=== PATIENT | female | born 1965 | race Caucasian/White ===

== ENCOUNTER 2017-03-30 18:18 | Inpatient (IN) | payer BC ==
[~2017-03-30] VITALS: Ht 165.1 cm; Wt 62.9 kg
[~2017-03-30 18:18] MED LIST: ASPI325; B Complete1 EACH; CHOL10002 PO; DIGESTIVE ENZY220 MG PO; DIPH12.5EL; FOLI400; GABA300; GINSENG; Ginkgo Biloba40 M1; MELATONIN10 M2; MSM1000 MG; NORT10; POTCHL10ER PO; VIRT-VITE PLUS T5 MG; Vitamin C1000 M1; ZINC15; [UNRECOGNIZED DRUG - OTHER]
[2017-03-30 19:21] LABS: Base Excess Venous -12.5 mmol/L; Bicarbonate Venous 15.4 mmol/L (24.0-30.0); PCO2 Venous 36.7 mmHg (38-42); PO2 Venous 70.1 mmHg (38-42); pH Blood Venous 7.22 (7.34-7.37)
[2017-03-30 19:49] LABS: Thyroid Stimulating Hormone 1.11 uIU/mL (0.360-4.800)
[2017-03-30 20:07] LABS: Magnesium, Blood 2.7 mg/dL (1.6-2.4); Phosphorus, Blood 13.1 mg/dL (2.5-4.9)
[2017-03-30 22:10] LABS: Source, Urine Clean Catch
[2017-03-30 22:21] LABS: Appearance, Urine Bloody (Clear); Bilirubin, Urine Neg (Neg); Blood, Urine 5+ (Neg); Color, Urine Red (P-Yellow); Glucose Qualitative, Urine Neg (Neg); Ketones, Urine Neg (Neg); Leukocyte Esterase, Urine 2+ (Neg); Nitrite, Urine Neg (Neg); Protein, Urine 4+ (Neg); Specific Gravity, Urine 1.015 (1.003-1.022); Urobilinogen, Urine NORM (Normal)
[2017-03-30 22:34] LABS: Potassium, Urine, Random 9.7 mmol/L (12.0-75.0)
[2017-03-30 22:35] LABS: Bacteria Many /hpf; Renal Epithelial Many /hpf (0-Rare); Squamous Epithelial Cells Few /hpf (Few); Transitional Epithelial Cells Few /hpf (0-Rare); White Blood Cells, Urine TNTC /hpf (0-5)
[2017-03-30 22:49] LABS: PCO2 Arterial 24.5 mmHg (35-45); PO2 Arterial 99.3 mmHg (80-100); pH Blood Arterial 7.31 (7.35-7.45)
[2017-03-30 23:10] LABS: U Amphetamine Screen Not Detected; U Barbituate Screen Not Detected; U Benzodiazapine Screen Not Detected; U Buprenorphine Screen Not Detected; U Cannabinoids Screen Not Detected; U Cocaine Screen Not Detected; U Methadone Screen Not Detected; U Methamphetamine Screen Not Detected; U Opiates Screen Not Detected; U Oxycodone Screen Not Detected; U Phencyclidine Screen Not Detected; U Propoxyphene Screen Not Detected
[2017-03-31 00:23] LABS: Albumin, Blood 3.2 g/dL (3.4-5.0); Anion Gap 22 mmol/L (6-16); Blood Urea Nitrogen 129 mg/dL (8-24); Bun/Creatinine Ratio 16.1 (12.0-20.0); CO2, Blood 15 mmol/L (21-32); Calcium, Blood 9.4 mg/dL (8.5-10.1); Chloride, Blood 74 mmol/L (98-108); Glomerular Filtration Rate 6 (60-); Glucose, Blood 95 mg/dL (70-99); Potassium, Blood 3.4 mmol/L (3.5-5.5); Sodium, Blood 111 mmol/L (136-145)
[2017-03-31 00:45] LABS: Phosphorus, Blood 12.9 mg/dL (2.5-4.9)
[2017-03-31 03:58] LABS: BASOPHILS ABSOLUTE AUTO 0.02 K/mm3 (0.00-0.23); BASOPHILS PERCENT AUTO 0 % (0-2); EOSINOPHILS PERCENT AUTO 0 % (0-6); Hemoglobin 14.4 g/dL (11.5-16.0); IMMATURE GRAN ABSOLUTE AUTO 0.47 K/mm3 (0.00-0.10); IMMATURE GRAN PERCENT AUTO 4 % (0-1); LYMPHOCYTES ABSOLUTE AUTO 2.14 K/mm3 (0.84-5.20); LYMPHOCYTES PERCENT AUTO 16 % (21-46); MONOCYTES ABSOLUTE AUTO 0.54 K/mm3 (0.16-1.47); MONOCYTES PERCENT AUTO 4 % (4-13); Mean Corpuscular HGB 31.6 pg (26.0-34.0); NEUTROPHILS ABSOLUTE AUTO 10.24 K/mm3 (1.96-9.15); NEUTROPHILS PERCENT AUTO 76 % (41-73); Platelet Count 436 K/mm3 (150-400); RDW Coefficient Variation 12.5 % (11.7-14.2); RDW Standard Deviation 37.7 fL (35.1-46.3); Red Blood Cell Count 4.55 M/mm3 (3.80-5.20); White Blood Cell Count 13.41 K/mm3 (4.00-11.30)
[2017-03-31 04:06] LABS: Magnesium, Blood 2.7 mg/dL (1.6-2.4)
[2017-03-31 04:28] LABS: Albumin, Blood 3.1 g/dL (3.4-5.0); Anion Gap 20 mmol/L (6-16); Blood Urea Nitrogen 125 mg/dL (8-24); Bun/Creatinine Ratio 18.1 (12.0-20.0); CO2, Blood 17 mmol/L (21-32); Calcium, Blood 9.1 mg/dL (8.5-10.1); Chloride, Blood 76 mmol/L (98-108); Creatinine, Blood 6.92 mg/dL (0.40-1.00); Glomerular Filtration Rate 7 (60-); Glucose, Blood 123 mg/dL (70-99); Phosphorus, Blood 10.6 mg/dL (2.5-4.9); Potassium, Blood 3.2 mmol/L (3.5-5.5); Sodium, Blood 113 mmol/L (136-145)
[2017-03-31 05:12] LABS: Mean Corpuscular Volume 95 fL (80-100)
[2017-03-31 07:23] LABS: Mean Corpuscular HGB Conc 33.5 g/dL (31.5-36.5)
[2017-03-31 08:16] LABS: International Normalized Ratio 0.96
[2017-03-31] MEDS ORDERED: Questran4 GM PO (08:52)
[2017-03-31] MEDS ORDERED: GABA300 PO (08:53)
[2017-03-31] MEDS ORDERED: NORT25 PO (08:53)
[2017-03-31 09:00] LABS: Potassium, Blood 2.6 mmol/L (3.5-5.5)
[2017-03-31 13:35] LABS: CO2, Blood 28 mmol/L (21-32); Sodium, Blood 118 mmol/L (136-145)
[2017-03-31 21:16] LABS: Potassium, Blood 3.1 mmol/L (3.5-5.5)
[2017-03-31 22:53] LABS: Adenovirus F 40/41 Not Detected (NOT DETECT); Astrovirus Not Detected (NOT DETECT); Campylobacter Sp Not Detected (NOT DETECT); Cryptosporidium Not Detected (NOT DETECT); Cyclospora Cayetanensis Not Detected (NOT DETECT); E. Coli O157 Not Detected (NOT DETECT); Entamoeba Histolytica Not Detected (NOT DETECT); Enteroaggregative E. coli-EAEC Not Detected (NOT DETECT); Enteropathogenic E. coli-EPEC Not Detected (NOT DETECT); Enterotoxigenic E. coli-ETEC Not Detected (NOT DETECT); Giardia Lamblia Not Detected (NOT DETECT); Norovirus GI/GII Not Detected (NOT DETECT); Plesiomonas Shigelloides Not Detected (NOT DETECT); Rotavirus A Not Detected (NOT DETECT); Salmonella Sp Not Detected (NOT DETECT); Sapovirus Not Detected (NOT DETECT); Shiga Toxin-prod E. coli-STEC Not Detected (NOT DETECT); Shigella/Enteroin E. coli-EIEC Not Detected (NOT DETECT); Vibrio Cholerae Not Detected (NOT DETECT); Vibrio Sp Not Detected (NOT DETECT); Yersinia Enterocolitica Not Detected (NOT DETECT)
[2017-04-01 04:27] LABS: BASOPHILS ABSOLUTE AUTO 0.01 K/mm3 (0.00-0.23); BASOPHILS PERCENT AUTO 0 % (0-2); EOSINOPHILS ABSOLUTE AUTO 0.01 K/mm3 (0.00-0.68); EOSINOPHILS PERCENT AUTO 0 % (0-6); Hematocrit 29.3 % (33.0-51.0); Hemoglobin 10.7 g/dL (11.5-16.0); IMMATURE GRAN ABSOLUTE AUTO 0.13 K/mm3 (0.00-0.10); IMMATURE GRAN PERCENT AUTO 2 % (0-1); LYMPHOCYTES ABSOLUTE AUTO 1.13 K/mm3 (0.84-5.20); LYMPHOCYTES PERCENT AUTO 16 % (21-46); MONOCYTES ABSOLUTE AUTO 0.55 K/mm3 (0.16-1.47); MONOCYTES PERCENT AUTO 8 % (4-13); Mean Corpuscular HGB 31.1 pg (26.0-34.0); Mean Corpuscular HGB Conc 36.5 g/dL (31.5-36.5); NEUTROPHILS ABSOLUTE AUTO 5.18 K/mm3 (1.96-9.15); NEUTROPHILS PERCENT AUTO 74 % (41-73); Platelet Count 312 K/mm3 (150-400); RDW Coefficient Variation 12.6 % (11.7-14.2); RDW Standard Deviation 39.3 fL (35.1-46.3); Red Blood Cell Count 3.44 M/mm3 (3.80-5.20); White Blood Cell Count 7.01 K/mm3 (4.00-11.30)
[2017-04-01 04:30] LABS: Mean Corpuscular Volume 85 fL (80-100)
[2017-04-01 04:53] LABS: CPK Creatine Kinase 39 U/L (26-193); Magnesium, Blood 2.1 mg/dL (1.6-2.4); Uric Acid, Blood 5.5 mg/dL (2.6-6.0)
[2017-04-01 05:06] LABS: Alanine Aminotransfer (ALT/SGP 9 U/L (12-78); Albumin, Blood 2.3 g/dL (3.4-5.0); Albumin/Globulin Ratio 0.6 (0.8-1.8); Alk Phos 90 U/L (50-136); Anion Gap 6 mmol/L (6-16); Aspartate Aminotrans (AST/SGOT 12 U/L (12-37); Bilirubin, Total 0.4 mg/dL (0.1-1.0); Blood Urea Nitrogen 17 mg/dL (8-24); Bun/Creatinine Ratio 30.1 (12.0-20.0); CO2, Blood 29 mmol/L (21-32); Chloride, Blood 96 mmol/L (98-108); Creatinine, Blood 0.56 mg/dL (0.40-1.00); Globulin, Blood 3.6 g/dL (2.2-4.0); Glomerular Filtration Rate >60 (60-); Glucose, Blood 90 mg/dL (70-99); Potassium, Blood 3.5 mmol/L (3.5-5.5); Sodium, Blood 131 mmol/L (136-145); Total Protein, Blood 5.9 g/dL (6.4-8.2)
[2017-04-01 05:26] LABS: Calcium, Blood 7.7 mg/dL (8.5-10.1); Phosphorus, Blood 0.5 mg/dL (2.5-4.9)
[2017-04-01 06:39] LABS: Creatinine, Blood 0.51 mg/dL (0.40-1.00); Phosphorus, Blood 0.5 mg/dL (2.5-4.9)
[2017-04-01 15:44] LABS: Albumin, Blood 2.3 g/dL (3.4-5.0); Anion Gap 7 mmol/L (6-16); Blood Urea Nitrogen 6 mg/dL (8-24); Bun/Creatinine Ratio 13.9 (12.0-20.0); CO2, Blood 28 mmol/L (21-32); Chloride, Blood 96 mmol/L (98-108); Creatinine, Blood 0.43 mg/dL (0.40-1.00); Glomerular Filtration Rate >60 (60-); Glucose, Blood 78 mg/dL (70-99); Potassium, Blood 3.3 mmol/L (3.5-5.5); Sodium, Blood 131 mmol/L (136-145)
[2017-04-01 15:54] LABS: Phosphorus, Blood 0.5 mg/dL (2.5-4.9)
[2017-04-02 00:41] LABS: Albumin, Blood 2.2 g/dL (3.4-5.0); Anion Gap 7 mmol/L (6-16); Blood Urea Nitrogen 2 mg/dL (8-24); Bun/Creatinine Ratio 4.8 (12.0-20.0); CO2, Blood 30 mmol/L (21-32); Calcium, Blood 7.5 mg/dL (8.5-10.1); Chloride, Blood 96 mmol/L (98-108); Creatinine, Blood 0.42 mg/dL (0.40-1.00); Glomerular Filtration Rate >60 (60-); Glucose, Blood 87 mg/dL (70-99); Magnesium, Blood 1.8 mg/dL (1.6-2.4); Phosphorus, Blood 1.8 mg/dL (2.5-4.9); Sodium, Blood 133 mmol/L (136-145)
[2017-04-02 09:30] LABS: Hematocrit 29.5 % (33.0-51.0); Hemoglobin 10.1 g/dL (11.5-16.0)
[2017-04-02 10:22] LABS: Magnesium, Blood 1.8 mg/dL (1.6-2.4)
[2017-04-02 10:45] LABS: Albumin, Blood 2.2 g/dL (3.4-5.0); Anion Gap 9 mmol/L (6-16); Blood Urea Nitrogen <1 mg/dL (8-24); Bun/Creatinine Ratio Unable to Calculate (12.0-20.0); CO2, Blood 30 mmol/L (21-32); Calcium, Blood 7.6 mg/dL (8.5-10.1); Chloride, Blood 95 mmol/L (98-108); Creatinine, Blood 0.38 mg/dL (0.40-1.00); Glomerular Filtration Rate >60 (60-); Glucose, Blood 135 mg/dL (70-99); Phosphorus, Blood 1.3 mg/dL (2.5-4.9); Potassium, Blood 3.4 mmol/L (3.5-5.5); Sodium, Blood 134 mmol/L (136-145)
[2017-04-02 10:50] LABS: BASOPHILS ABSOLUTE AUTO 0.01 K/mm3 (0.00-0.23); BASOPHILS PERCENT AUTO 0 % (0-2); EOSINOPHILS ABSOLUTE AUTO 0.07 K/mm3 (0.00-0.68); EOSINOPHILS PERCENT AUTO 1 % (0-6); Hematocrit 29.6 % (33.0-51.0); Hemoglobin 10.1 g/dL (11.5-16.0); IMMATURE GRAN ABSOLUTE AUTO 0.13 K/mm3 (0.00-0.10); IMMATURE GRAN PERCENT AUTO 1 % (0-1); LYMPHOCYTES ABSOLUTE AUTO 1.15 K/mm3 (0.84-5.20); LYMPHOCYTES PERCENT AUTO 10 % (21-46); MONOCYTES ABSOLUTE AUTO 1.09 K/mm3 (0.16-1.47); MONOCYTES PERCENT AUTO 10 % (4-13); Mean Corpuscular HGB 30.9 pg (26.0-34.0); Mean Corpuscular HGB Conc 34.1 g/dL (31.5-36.5); Mean Platelet Volume 9.5 fL (9.1-12.4); NEUTROPHILS ABSOLUTE AUTO 8.77 K/mm3 (1.96-9.15); NEUTROPHILS PERCENT AUTO 78 % (41-73); Platelet Count 319 K/mm3 (150-400); RDW Standard Deviation 43.2 fL (35.1-46.3); Red Blood Cell Count 3.27 M/mm3 (3.80-5.20); White Blood Cell Count 11.22 K/mm3 (4.00-11.30)
[2017-04-02 10:51] LABS: Mean Corpuscular Volume 91 fL (80-100)
[2017-04-02 19:24] LABS: Adenovirus F 40/41 Not Detected (NOT DETECT); Astrovirus Not Detected (NOT DETECT); Campylobacter Sp Not Detected (NOT DETECT); Cryptosporidium Not Detected (NOT DETECT); Cyclospora Cayetanensis Not Detected (NOT DETECT); E. Coli O157 Not Detected (NOT DETECT); Entamoeba Histolytica Not Detected (NOT DETECT); Enteroaggregative E. coli-EAEC Not Detected (NOT DETECT); Enteropathogenic E. coli-EPEC Not Detected (NOT DETECT); Enterotoxigenic E. coli-ETEC Not Detected (NOT DETECT); Giardia Lamblia Not Detected (NOT DETECT); Norovirus GI/GII Not Detected (NOT DETECT); Plesiomonas Shigelloides Not Detected (NOT DETECT); Rotavirus A Not Detected (NOT DETECT); Salmonella Sp Not Detected (NOT DETECT); Sapovirus Not Detected (NOT DETECT); Shiga Toxin-prod E. coli-STEC Not Detected (NOT DETECT); Shigella/Enteroin E. coli-EIEC Not Detected (NOT DETECT); Vibrio Cholerae Not Detected (NOT DETECT); Vibrio Sp Not Detected (NOT DETECT); Yersinia Enterocolitica Not Detected (NOT DETECT)
[2017-04-03 04:39] LABS: BASOPHILS ABSOLUTE AUTO 0.02 K/mm3 (0.00-0.23); BASOPHILS PERCENT AUTO 0 % (0-2); EOSINOPHILS ABSOLUTE AUTO 0.09 K/mm3 (0.00-0.68); EOSINOPHILS PERCENT AUTO 1 % (0-6); Hematocrit 30.2 % (33.0-51.0); Hemoglobin 10.3 g/dL (11.5-16.0); IMMATURE GRAN PERCENT AUTO 1 % (0-1); LYMPHOCYTES ABSOLUTE AUTO 1.24 K/mm3 (0.84-5.20); LYMPHOCYTES PERCENT AUTO 10 % (21-46); MONOCYTES ABSOLUTE AUTO 1.04 K/mm3 (0.16-1.47); MONOCYTES PERCENT AUTO 9 % (4-13); Mean Corpuscular HGB 30.9 pg (26.0-34.0); Mean Corpuscular HGB Conc 34.1 g/dL (31.5-36.5); Mean Corpuscular Volume 91 fL (80-100); Mean Platelet Volume 8.8 fL (9.1-12.4); NEUTROPHILS ABSOLUTE AUTO 9.63 K/mm3 (1.96-9.15); NEUTROPHILS PERCENT AUTO 80 % (41-73); Platelet Count 269 K/mm3 (150-400); RDW Coefficient Variation 12.9 % (11.7-14.2); RDW Standard Deviation 43.4 fL (35.1-46.3); Red Blood Cell Count 3.33 M/mm3 (3.80-5.20); White Blood Cell Count 12.12 K/mm3 (4.00-11.30)
[2017-04-03 04:58] LABS: Anion Gap 9 mmol/L (6-16); Blood Urea Nitrogen 1 mg/dL (8-24); Bun/Creatinine Ratio 2.5 (12.0-20.0); CO2, Blood 28 mmol/L (21-32); Calcium, Blood 7.9 mg/dL (8.5-10.1); Chloride, Blood 97 mmol/L (98-108); Glomerular Filtration Rate >60 (60-); Glucose, Blood 144 mg/dL (70-99); Magnesium, Blood 1.7 mg/dL (1.6-2.4); Phosphorus, Blood 1.6 mg/dL (2.5-4.9); Potassium, Blood 3.4 mmol/L (3.5-5.5); Sodium, Blood 134 mmol/L (136-145)
[2017-04-03 10:46] LABS: Alanine Aminotransfer (ALT/SGP 9 U/L (12-78); Albumin, Blood 2.1 g/dL (3.4-5.0); Albumin/Globulin Ratio 0.6 (0.8-1.8); Alk Phos 86 U/L (50-136); Aspartate Aminotrans (AST/SGOT 10 U/L (12-37); Bilirubin, Direct <0.1 mg/dL (0.0-0.3); Bilirubin, Indirect Unable to Calculate mg/dL (0.1-0.7); Bilirubin, Total 0.2 mg/dL (0.1-1.0); Globulin, Blood 3.6 g/dL (2.2-4.0); Total Protein, Blood 5.7 g/dL (6.4-8.2)
[2017-04-04 05:41] LABS: BASOPHILS ABSOLUTE AUTO 0.02 K/mm3 (0.00-0.23); BASOPHILS PERCENT AUTO 0 % (0-2); EOSINOPHILS ABSOLUTE AUTO 0.18 K/mm3 (0.00-0.68); EOSINOPHILS PERCENT AUTO 1 % (0-6); Hematocrit 33.1 % (33.0-51.0); Hemoglobin 10.9 g/dL (11.5-16.0); IMMATURE GRAN ABSOLUTE AUTO 0.17 K/mm3 (0.00-0.10); IMMATURE GRAN PERCENT AUTO 1 % (0-1); LYMPHOCYTES ABSOLUTE AUTO 1.45 K/mm3 (0.84-5.20); LYMPHOCYTES PERCENT AUTO 11 % (21-46); MONOCYTES ABSOLUTE AUTO 1.37 K/mm3 (0.16-1.47); MONOCYTES PERCENT AUTO 10 % (4-13); Mean Corpuscular HGB 30.4 pg (26.0-34.0); Mean Corpuscular HGB Conc 32.9 g/dL (31.5-36.5); Mean Corpuscular Volume 92 fL (80-100); Mean Platelet Volume 9.3 fL (9.1-12.4); NEUTROPHILS ABSOLUTE AUTO 10.34 K/mm3 (1.96-9.15); NEUTROPHILS PERCENT AUTO 77 % (41-73); Platelet Count 314 K/mm3 (150-400); RDW Coefficient Variation 13.1 % (11.7-14.2); RDW Standard Deviation 44.5 fL (35.1-46.3); Red Blood Cell Count 3.59 M/mm3 (3.80-5.20); White Blood Cell Count 13.53 K/mm3 (4.00-11.30)
[2017-04-04 06:08] LABS: Albumin, Blood 2.3 g/dL (3.4-5.0); Anion Gap 7 mmol/L (6-16); Blood Urea Nitrogen 2 mg/dL (8-24); Bun/Creatinine Ratio 4.2 (12.0-20.0); CO2, Blood 29 mmol/L (21-32); Calcium, Blood 8.2 mg/dL (8.5-10.1); Chloride, Blood 99 mmol/L (98-108); Creatinine, Blood 0.48 mg/dL (0.40-1.00); Glomerular Filtration Rate >60 (60-); Glucose, Blood 85 mg/dL (70-99); Magnesium, Blood 1.8 mg/dL (1.6-2.4); Phosphorus, Blood 2.7 mg/dL (2.5-4.9); Potassium, Blood 3.5 mmol/L (3.5-5.5); Sodium, Blood 135 mmol/L (136-145)
[2017-04-05 08:10] LABS: Albumin, Blood 2.1 g/dL (3.4-5.0); Anion Gap 6 mmol/L (6-16); Blood Urea Nitrogen 3 mg/dL (8-24); Bun/Creatinine Ratio 6.6 (12.0-20.0); CO2, Blood 29 mmol/L (21-32); Calcium, Blood 8.4 mg/dL (8.5-10.1); Chloride, Blood 100 mmol/L (98-108); Creatinine, Blood 0.45 mg/dL (0.40-1.00); Glomerular Filtration Rate >60 (60-); Glucose, Blood 145 mg/dL (70-99); Magnesium, Blood 1.9 mg/dL (1.6-2.4); Phosphorus, Blood 3.1 mg/dL (2.5-4.9); Potassium, Blood 3.7 mmol/L (3.5-5.5); Sodium, Blood 135 mmol/L (136-145)
[2017-04-05] MEDS ORDERED: FOLI1 PO (13:45)
[2017-04-05] MEDS ORDERED: ASACOL HD800 MG PO (13:50)
[2017-04-05] MEDS ORDERED: BENTYL10 MG PO (13:50)
[2017-04-05] MEDS ORDERED: SACC250C PO (13:51)
[2017-04-05] MEDS ORDERED: ROXICODONE5 MG PO (13:51)
[2017-04-05] MEDS ORDERED: LEVFLO500 PO (13:52)
[2017-04-05] MEDS ORDERED: METR500 PO (13:52)
[2017-04-06 20:07] LABS: 25-OH Vitamin D, Total 27.6 ng/mL (24.0-80.0)
[2017-05-24] MEDS ORDERED: DULO30 PO (10:03)
[2017-05-24] MEDS ORDERED: PANT40 PO (10:03)
[2017-05-24] MEDS ORDERED: OXYC5 PO (10:04)
[2017-05-24] MEDS ORDERED: NORT25 PO (10:04)
[2017-05-24] MEDS ORDERED: SULF500A PO (10:04)
== END 2017-04-05 14:17 | disposition home or self-care (01) | DRG 392 ==
LOC: ER 18:18 → ICUW 20:31 → MEDS 20:31 → ICUW 21:07 → MEDS 04-02 13:32 → ENPENDDIS 04-05 12:00 → MEDS 04-05 14:17
PROVIDERS: Family Medicine; Internal Medicine; Internal Medicine Gastroenterology; Internal Medicine Nephrology; Physician Assistant
PROC: 3E0234Z Introduction of Serum, Toxoid and Vaccine into Muscle, Percutaneous Approach (ICD-10-PCS; principal; 2017-03-31)
DX: K52.832 Lymphocytic colitis (principal); N17.9 Acute kidney failure, unspecified; E87.2 Acidosis; R18.8 Other ascites; E87.1 Hypo-osmolality and hyponatremia; E83.39 Other disorders of phosphorus metabolism; A09 Infectious gastroenteritis and colitis, unspecified; E88.09 Other disorders of plasma-protein metabolism, not elsewhere classified; Z23 Encounter for immunization; F17.210 Nicotine dependence, cigarettes, uncomplicated; E87.6 Hypokalemia; E86.9 Volume depletion, unspecified; F10.20 Alcohol dependence, uncomplicated; D25.9 Leiomyoma of uterus, unspecified
CPT/HCPCS: 36415; 36569; 36600; 51702; 71020; 74000; 74176; 76705; 76770; 76830; 76856; 80048; 80053; 80069; 80076; 81001; 82306; 82374; 82436; 82533; 82550; 82565; 82803; 83605; 83690; 83735; 83874; 83930; 83935; 83993; 84100; 84132; 84133; 84295; 84300; 84443; 84550; 85014; 85018; 85025; 85610; 85730; 87040; 87077; 87086; 87186; 87507; 93005; 93010; 96361; 96374; 96375; 99285; C1751; J0295; J0696; J1170; J1956; J2001; J2060; J2405; J3010; J3480; J7030; J7050; J7060; J7070; J7131

== ENCOUNTER → 2017-05-03 | Outpatient (CLI) | payer BC ==
[~2017-05-03] MED LIST changes: +ALLEGRA ALLERG180 M1; +ASACOL HD800 MG PO; +ASPI81CH; +BENTYL10 MG; +BENTYL10 MG PO; +CHOL10002; +CYAN500; +DULO30 PO; +FOLI1 PO; +GABA300 PO; +Ginseng100 MG; +LEVFLO500 PO; +LOPE2EL; +METR500 PO; +MULVITB; +NORT25 PO; +OXYC5 PO; +PANT40; +PANT40 PO; +POTA10T; +Questran4 GM; +Questran4 GM PO; +ROXICODONE5 MG PO; +SACC250C PO; +SULF500A PO; +Zofran4 MG
[2017-05-05 12:17] LABS: HPV Genotype 16 Not Detected (NOTDET); HPV Genotype 18 Not Detected (NOTDET)
[2017-05-11 11:00] LABS: HPV High Risk Other Not Detected (NOTDET)
== END ==
LOC: LAB 15:35
PROVIDERS: Obstetrics & Gynecology
DX: Z01.419 Encounter for gynecological examination (general) (routine) without abnormal findings (principal)
CPT/HCPCS: 87624; G0123

== ENCOUNTER 2017-05-27 08:28 | Day surgery (SDC) | payer BC ==
[~2017-05-27] VITALS: Ht 165.1 cm; Wt 68.0 kg
[~2017-05-27 08:28] MED LIST changes: -ALLEGRA ALLERG180 M1; -ASPI81CH; -BENTYL10 MG; -CHOL10002; -CYAN500; -Ginseng100 MG; -LOPE2EL; -MULVITB; -PANT40; -POTA10T; -Questran4 GM; -Zofran4 MG
[2017-05-27] MEDS ORDERED: CYAN500 (13:15)
[2017-05-27] MEDS ORDERED: GABA300 (13:15)
[2017-05-27] MEDS ORDERED: CHOL10002 (13:16)
[2017-05-27] MEDS ORDERED: ALLEGRA ALLERG180 M1 (13:16)
[2017-05-27] MEDS ORDERED: MULVITB (13:16)
[2017-05-27] MEDS ORDERED: LOPE2EL (13:16)
[2017-05-27] MEDS ORDERED: Ginkgo Biloba40 M1 (13:16)
[2017-05-27] MEDS ORDERED: ASPI81CH (13:16)
[2017-05-27] MEDS ORDERED: POTA10T (13:16)
[2017-05-27] MEDS ORDERED: Ginseng100 MG (13:16)
[2017-05-27] MEDS ORDERED: PANT40 (13:17)
[2017-05-27] MEDS ORDERED: Questran4 GM (13:17)
[2017-05-27] MEDS ORDERED: BENTYL10 MG (13:17)
[2017-05-27] MEDS ORDERED: Zofran4 MG (13:18)
== END 2017-05-27 23:04 | disposition home or self-care (01) ==
LOC: ORSCMMR 08:28
PROVIDERS: Obstetrics & Gynecology
PROC: 0UDB8ZX Extraction of Endometrium, Via Natural or Artificial Opening Endoscopic, Diagnostic (ICD-10-PCS; principal; 2017-05-27 10:00)
DX: N92.1 Excessive and frequent menstruation with irregular cycle (principal); K21.9 Gastro-esophageal reflux disease without esophagitis; N18.9 Chronic kidney disease, unspecified; G47.33 Obstructive sleep apnea (adult) (pediatric); Z79.899 Other long term (current) drug therapy
CPT/HCPCS: 88305; J1100; J1885; J2250; J2405; J2710; J3010; J7120

== ENCOUNTER 2017-06-03 09:31 | Day surgery (SDC) | payer BC ==
[~2017-06-03] VITALS: Ht 165.1 cm; Wt 69.8 kg
[~2017-06-03 09:31] MED LIST changes: +ALLEGRA ALLERG180 M1; +ASPI81CH; +BENTYL10 MG; +CHOL10002; +CYAN500; +Ginseng100 MG; +LOPE2EL; +MULVITB; +PANT40; +POTA10T; +Questran4 GM; +Zofran4 MG
== END 2017-06-03 11:53 | disposition home or self-care (01) ==
LOC: ORSCSDS 09:31
PROVIDERS: Internal Medicine Gastroenterology
PROC: 0DBE8ZX Excision of Large Intestine, Via Natural or Artificial Opening Endoscopic, Diagnostic (ICD-10-PCS; principal; 2017-06-03 10:45)
PROC: 0DBB8ZX Excision of Ileum, Via Natural or Artificial Opening Endoscopic, Diagnostic (ICD-10-PCS; principal; 2017-06-03 10:45)
DX: K52.832 Lymphocytic colitis (principal); Z86.010 Personal history of colon polyps; F32.9 Major depressive disorder, single episode, unspecified; E78.00 Pure hypercholesterolemia, unspecified; Z87.891 Personal history of nicotine dependence; Z79.82 Long term (current) use of aspirin; Z79.899 Other long term (current) drug therapy
CPT/HCPCS: 88305; J7120

== ENCOUNTER → 2018-07-02 | Outpatient (CLI) | payer BC ==
[2018-07-04 15:57] LABS: Microalbumin, Urine Quant. <5.000 mg/L (0.000-20.000); Protein, Urine Quantitative <5.0 mg/dL (0.0-11.9)
== END | disposition home or self-care (01) ==
LOC: LAB 09:00 → LAB SHORT 09:00 → LAB FUT 06-30 15:45
PROVIDERS: Internal Medicine Nephrology
DX: N18.2 Chronic kidney disease, stage 2 (mild) (principal); D63.1 Anemia in chronic kidney disease; N25.81 Secondary hyperparathyroidism of renal origin; E55.9 Vitamin D deficiency, unspecified; E78.00 Pure hypercholesterolemia, unspecified; R76.9 Abnormal immunological finding in serum, unspecified; R94.5 Abnormal results of liver function studies; R94.6 Abnormal results of thyroid function studies
CPT/HCPCS: 81050; 82043; 82570; 84156

== ENCOUNTER 2018-10-20 12:33 | Day surgery (SDC) | payer BC ==
[~2018-10-20] VITALS: Ht 165.1 cm; Wt 81.0 kg
[2018-10-20] MEDS ORDERED: Zantac150 MG PO (13:16)
[2018-10-20] MEDS ORDERED: Voltaren100 GM TOP (13:16)
== END 2018-10-20 14:55 | disposition home or self-care (01) ==
LOC: ORSCSDS 12:33
PROVIDERS: Internal Medicine Gastroenterology
PROC: 0DB68ZX Excision of Stomach, Via Natural or Artificial Opening Endoscopic, Diagnostic (ICD-10-PCS; principal; 2018-10-20 13:45)
PROC: 0DB98ZX Excision of Duodenum, Via Natural or Artificial Opening Endoscopic, Diagnostic (ICD-10-PCS; principal; 2018-10-20 13:45)
DX: K21.9 Gastro-esophageal reflux disease without esophagitis (principal); R14.0 Abdominal distension (gaseous); Z80.0 Family history of malignant neoplasm of digestive organs; E78.00 Pure hypercholesterolemia, unspecified; F17.210 Nicotine dependence, cigarettes, uncomplicated; Z79.899 Other long term (current) drug therapy
CPT/HCPCS: 88305; 88342; J2250; J2704; J7120

== ENCOUNTER → 2019-05-10 | Outpatient (CLI) | payer BC ==
[~2019-05-10] MED LIST changes: +Voltaren100 GM TOP; +Zantac150 MG PO
== END | disposition home or self-care (01) ==
LOC: PLD 11:42 → LAB SHORT 11:42
DX: D18.03 Hemangioma of intra-abdominal structures (principal)
CPT/HCPCS: 88305

== ENCOUNTER 2021-03-05 08:54 | Day surgery (SDC) | payer BC ==
[~2021-03-05] VITALS: Ht 165.1 cm; Wt 76.6 kg
[~2021-03-05 08:54] MED LIST changes: +ALBU90OI; +CATAPRES0.1 MG; +FAMO20; +ROSU10TA
== END 2021-03-05 12:05 | disposition home or self-care (01) ==
LOC: ORSCSDS 08:54
PROVIDERS: Internal Medicine Gastroenterology
PROC: 0DBL8ZX Excision of Transverse Colon, Via Natural or Artificial Opening Endoscopic, Diagnostic (ICD-10-PCS; principal; 2021-03-05 10:00)
PROC: 0DBE8ZX Excision of Large Intestine, Via Natural or Artificial Opening Endoscopic, Diagnostic (ICD-10-PCS; principal; 2021-03-05 10:00)
PROC: 0DB98ZX Excision of Duodenum, Via Natural or Artificial Opening Endoscopic, Diagnostic (ICD-10-PCS; principal; 2021-03-05 10:00)
PROC: 0DB78ZX Excision of Stomach, Pylorus, Via Natural or Artificial Opening Endoscopic, Diagnostic (ICD-10-PCS; principal; 2021-03-05 10:00)
DX: K52.832 Lymphocytic colitis (principal); Z86.010 Personal history of colon polyps; K21.9 Gastro-esophageal reflux disease without esophagitis; D12.3 Benign neoplasm of transverse colon; K44.9 Diaphragmatic hernia without obstruction or gangrene; K64.4 Residual hemorrhoidal skin tags; Z80.0 Family history of malignant neoplasm of digestive organs; Z87.891 Personal history of nicotine dependence; Z79.899 Other long term (current) drug therapy; G47.33 Obstructive sleep apnea (adult) (pediatric)
CPT/HCPCS: 84703; 88305; 88342; J2250; J2704; J7120

== ENCOUNTER → 2021-11-06 | Outpatient (CLI) | payer BC | END | disposition home or self-care (01) | LOC: PLD 15:01 → LAB SHORT 15:01 | DX: D48.5 Neoplasm of uncertain behavior of skin (principal) | CPT/HCPCS: 88304 ==

== ENCOUNTER 2022-01-15 06:08 | Day surgery (SDC) | payer BC ==
[~2022-01-15] VITALS: Ht 165.1 cm; Wt 69.2 kg
[2022-01-15] MEDS ORDERED: Amlodipine Bes2.5 MG (06:50)
[2022-01-15] MEDS ORDERED: AIMOVIG AU70 MG/1 ML (06:50)
[2022-01-15] MEDS ORDERED: VENL37.5ER (06:50)
[2022-01-15] MEDS ORDERED: CHOLESTYRAMI239.4 G1 (06:51)
[2022-01-15] MEDS ORDERED: GABA300 (06:51)
[2022-01-15] MEDS ORDERED: PROGESTERONE200 M1 (06:51)
[2022-01-15] MEDS ORDERED: BUDESONIDE EC3 M1 (06:51)
[2022-01-15] MEDS ORDERED: ESTRADIOL1 MG (06:51)
[2022-01-15] MEDS ORDERED: LOPE2C (06:51)
[2022-01-15] MEDS ORDERED: IMITREX50 M1 (06:52)
[2022-01-15] MEDS ORDERED: TOPI100 (06:52)
[2022-01-15] MEDS ORDERED: TEMA15 (06:52)
--- NOTE | 2022-01-15 08:10 | NUR ---
01/15/22 0810 Fabiana Serrato DC'D IN OR AT THE END OF THE CASE.
== END 2022-01-15 09:03 | disposition home or self-care (01) ==
LOC: ORSCSDS 06:08
PROVIDERS: Obstetrics & Gynecology
PROC: 0UDB8ZX Extraction of Endometrium, Via Natural or Artificial Opening Endoscopic, Diagnostic (ICD-10-PCS; principal; 2022-01-15 07:30)
DX: N95.0 Postmenopausal bleeding (principal); N85.00 Endometrial hyperplasia, unspecified; D52.9 Folate deficiency anemia, unspecified; D25.0 Submucous leiomyoma of uterus; Z79.890 Hormone replacement therapy; Z79.899 Other long term (current) drug therapy; Z87.891 Personal history of nicotine dependence
CPT/HCPCS: 88305; A9270; J0690; J1100; J1885; J2250; J2405; J2704; J3010; J7120

== ENCOUNTER → 2022-04-22 | Outpatient (CLI) | payer BC ==
[~2022-04-22] MED LIST changes: +AIMOVIG AU70 MG/1 ML; +Amlodipine Bes2.5 MG; +BUDESONIDE EC3 M1; +CHOLESTYRAMI239.4 G1; +ESTRADIOL1 MG; +IMITREX50 M1; +LOPE2C; +PROGESTERONE200 M1; +TEMA15; +TOPI100; +VENL37.5ER
[2022-04-22 19:18] LABS: Influenza A, PCR NEGATIVE (NEGATIVE); Influenza B, PCR NEGATIVE (NEGATIVE); Resp Syncytial Virus, PCR NEGATIVE (NEGATIVE)
[2022-04-22 19:19] LABS: SARS-Cov-2 (COVID-19) PCR, MMC POSITIVE (NEGATIVE)
== END | disposition home or self-care (01) ==
LOC: LAB 16:24 → LAB SHORT 16:24
PROVIDERS: Hospitalist
DX: J02.9 Acute pharyngitis, unspecified (principal)
CPT/HCPCS: 0241U

== ENCOUNTER → 2023-04-27 | Outpatient (CLI) | payer BC ==
[~2023-04-27] MED LIST changes: +IBUP800 PO; +PROM12.5S PO; +Percocet 5-3251 EACH PO; +SIME80CH PO
[2023-04-28 14:52] LABS: Campylobacter Sp Not Detected (NOT DETECT)
[2023-04-28 14:53] LABS: Adenovirus F 40/41 Not Detected (NOT DETECT); Astrovirus Not Detected (NOT DETECT); Cryptosporidium Not Detected (NOT DETECT); Cyclospora Cayetanensis Not Detected (NOT DETECT); E. Coli O157 Not Detected (NOT DETECT); Entamoeba Histolytica Not Detected (NOT DETECT); Enteroaggregative E. coli-EAEC Not Detected (NOT DETECT); Enteropathogenic E. coli-EPEC Not Detected (NOT DETECT); Enterotoxigenic E. coli-ETEC Not Detected (NOT DETECT); Giardia Lamblia Not Detected (NOT DETECT); Norovirus GI/GII Not Detected (NOT DETECT); Plesiomonas Shigelloides Not Detected (NOT DETECT); Rotavirus A Not Detected (NOT DETECT); Salmonella Sp Not Detected (NOT DETECT); Sapovirus Not Detected (NOT DETECT); Shiga Toxin-prod E. coli-STEC Not Detected (NOT DETECT); Shigella/Enteroin E. coli-EIEC Not Detected (NOT DETECT); Vibrio Cholerae Not Detected (NOT DETECT); Vibrio Sp Not Detected (NOT DETECT); Yersinia Enterocolitica Not Detected (NOT DETECT)
== END ==
LOC: LAB FUT 04-21 12:40 → LAB 08:35 → LAB SHORT 08:35
PROVIDERS: Internal Medicine Gastroenterology
DX: R19.7 Diarrhea, unspecified (principal)
CPT/HCPCS: 87507

== ENCOUNTER → 2024-08-02 | Outpatient (CLI) | payer BC ==
[2024-08-02 14:46] LABS: BASOPHILS ABSOLUTE AUTO 0.05 K/mm3 (0.00-0.23); BASOPHILS PERCENT AUTO 1 % (0-2); EOSINOPHILS ABSOLUTE AUTO 0.12 K/mm3 (0.00-0.68); EOSINOPHILS PERCENT AUTO 2 % (0-6); Hematocrit 40.1 % (33.0-51.0); Hemoglobin 13.2 g/dL (11.5-16.0); IMMATURE GRAN ABSOLUTE AUTO 0.04 K/mm3 (0.00-0.10); IMMATURE GRAN PERCENT AUTO 1 % (0-1); LYMPHOCYTES ABSOLUTE AUTO 2.02 K/mm3 (0.84-5.20); LYMPHOCYTES PERCENT AUTO 32 % (21-46); MONOCYTES ABSOLUTE AUTO 0.51 K/mm3 (0.16-1.47); MONOCYTES PERCENT AUTO 8 % (4-13); Mean Corpuscular HGB 29.1 pg (26.0-34.0); Mean Corpuscular HGB Conc 32.9 g/dL (31.5-36.5); Mean Corpuscular Volume 89 fL (80-100); Mean Platelet Volume 9.8 fL (9.1-12.4); NEUTROPHILS PERCENT AUTO 57 % (41-73); Platelet Count 275 K/mm3 (150-400); RDW Coefficient Variation 12.7 % (11.7-14.2); RDW Standard Deviation 41.1 fL (35.1-46.3); Red Blood Cell Count 4.53 M/mm3 (3.80-5.20); White Blood Cell Count 6.34 K/mm3 (4.00-11.30)
== END | disposition home or self-care (01) ==
LOC: LAB SHORT 13:54 → LAB 13:54
PROVIDERS: Hospitalist
DX: R06.02 Shortness of breath (principal)
CPT/HCPCS: 85025